=== PATIENT | female | born 1990 | race Caucasian/White ===

== ENCOUNTER 2018-12-29 17:31 | Emergency (ER) | payer OTHER ==
[~2018-12-29] VITALS: Ht 162.6 cm; Wt 83.9 kg
[2018-12-29 17:37] VITALS: BP 123/85
[2018-12-29] MEDS ORDERED: diphenhydrAMINE 50 MG/ML VIAL IM ONE (17:45)
[2018-12-29] MEDS ORDERED: methylPREDNISolone SOD SUCC PF 125 MG/2 ML VIAL. IM ONE (17:45)
[2018-12-29] MEDS ORDERED: FAMOTIDINE 20 MG TABLET. PO ONE (17:45)
[2018-12-29] MEDS ORDERED: PRED50TA PO (17:47)
[2018-12-29] MEDS ORDERED: FAMO20TA5 PO (17:47)
[2018-12-29] MEDS ORDERED: DIPH25CA58 PO (17:47)
--- NOTE | 2018-12-29 17:47 | PHYS DOC ---
Adult General Chief Complaint Chief Complaint: ALLERGIC REACTION HPI HPI Patient is a 28 year old female who presents to the ED today to be evaluated for allergic reaction. Patient states she got a TB skin test done a few minutes ago and started itching on the left forearm. She states she felt she was itching everywhere. She states she felt her face was swollen and also felt her throat was itching. Patient arrived in the ED not itching. Physical edition appears well. She states she's had TB skin test before with no issues. Review of Systems Review of Systems Constitutional: Denies fever or chills [] Eyes: Denies change in visual acuity, redness, or eye pain [] HENT: Reports facial swelling, throat itching. Denies nasal congestion or sore throat [] Respiratory: Denies cough or shortness of breath [] Cardiovascular: No additional information not addressed in HPI [] GI: Denies abdominal pain, nausea, vomiting, bloody stools or diarrhea [] : Denies dysuria or hematuria [] Musculoskeletal: Denies back pain or joint pain [] Integument: Reports itching and rash. Neurologic: Denies headache, focal weakness or sensory changes [] All other systems were reviewed and found to be within normal limits, except as documented in this note. Physical Exam Physical Exam Constitutional: Well developed, well nourished, no acute distress, non-toxic appearance. [] HENT: Normocephalic, atraumatic, bilateral external ears normal, oropharynx moist, no oral exudates, nose normal. Airway is open. Eyes: PERRLA, EOMI, conjunctiva normal, no discharge. [] Neck: Normal range of motion, no tenderness, supple, no stridor. [] Cardiovascular:Heart rate regular rhythm, no murmur [] Lungs & Thorax: Bilateral breath sounds clear to auscultation [] Abdomen: Bowel sounds normal, soft, no tenderness, no masses, no pulsatile masses. [] Skin: Warm, dry, no erythema, left forearm with a tiny erythematous area approximately 0.3 x 0.3 cm consistent with TB skin test injection. There is no induration to the area. Back: No tenderness, no CVA tenderness. [] Extremities: No tenderness, no cyanosis, no clubbing, ROM intact, no edema. [] Neurologic: Alert and oriented X 3, normal motor function, normal sensory function, no focal deficits noted. [] Psychologic: Affect normal, judgement normal, mood normal. [] EKG EKG [] Radiology/Procedures Radiology/Procedures [] Course & Med Decision Making Course & Med Decision Making Pertinent Labs and Imaging studies reviewed. (See chart for details) This is a 28-year-old female patient presenting to the ED today complaining of an allergic reaction to TB skin test. Patient had the TB skin test done couple minutes ago. Presents today complaining of itching most of it localized to the left forearm, facial swelling, throat itching. On physical exam there is no obvious facial swelling noted. No rashes airway is open. Patient will be given Solu-Medrol, Benadryl, Pepcid and discharged on prednisone, Pepcid and Benadryl. Follow-up with her own PCP in 1-2 weeks as needed. Dragon Disclaimer Dragon Disclaimer This electronic medical record was generated, in whole or in part, using a voice recognition dictation system. Departure Departure Impression: Primary Impression: Allergic reaction Disposition: 01 HOME, SELF-CARE Condition: STABLE Patient Instructions: Drug Allergy, [id number] Additional Instructions: You were evaluated in the emergency room for an allergic reaction. We put you on prednisone, Benadryl and Pepcid, take them until symptoms are completely gone. Take the prescribed prednisone until completed. Follow-up with your doctor in 3 days. Scripts Famotidine (FAMOTIDINE) 20 Mg Tablet 20 MG PO DAILY, #7 TAB Prov: MARIO HEARD APRN 12/29/18 Diphenhydramine Hcl (BENADRYL) 25 Mg Capsule 1 CAP PO Q6HRS PRN for RASH, #30 CAP 1 Refill Prov: MARIO HEARD APRN 12/29/18 Prednisone (PREDNISONE) 50 Mg Tablet 1 TAB PO DAILY, #5 TAB Prov: MARIO HEARD APRN 12/29/18 Problem Qualifiers Primary Impression: Allergic reaction Encounter type: initial encounter Qualified Codes: T78.40XA - Allergy, unspecified, initial encounter MARIO HEARD APRN Dec 29, 2018 17:47
== END 2018-12-29 18:08 | disposition home or self-care (01) ==
LOC: ER 17:31
DX: T78.40XA Allergy, unspecified, initial encounter (principal)
CPT/HCPCS: 96372; 99283; J2930